=== PATIENT | male | born 1990 | race Caucasian/White ===

== ENCOUNTER 2018-07-15 14:12 | Emergency (ER) | payer OTHER ==
[~2018-07-15] VITALS: Ht 157.5 cm; Wt 61.4 kg
[~2018-07-15 14:12] MED LIST: DOCU-144 PO; LOPE2CAP PO
[2018-07-15 14:20] VITALS: Ht 157.5 cm; Wt 61.4 kg
[2018-07-15] MEDS ORDERED: KETOROLAC 30 MG INJ IM STA (15:00)
[2018-07-15] MEDS ORDERED: ONDANSETRON 4 MG INJ IV STA (16:06)
[2018-07-15] MEDS ORDERED: morphine 4 MG/ML VIAL IV STA (16:06)
[2018-07-15] MEDS ORDERED: SOD CHLORIDE 0.9% 1,000 ML IV STA (16:06)
--- NOTE | 2018-07-15 18:40 | ERD ---
ER Documentation Chief Complaint Chief Complaint R88, ap w/nausea since last night, just D/C fr [facility] This is a 27-year-old male patient who presents to the emergency room via rescue ambulance with complaint of diffuse abdominal abdominal pain x 2 days. She has states he was seen at [place] ED today and was given MiraLAX and sent out. Patient continues to have abdominal pain, denies vomiting, +nausea, last BM 4 days ago. Denies fevers, denies drug use, denies alcohol use, denies tobacco use. She denies medical history although ED records from this hospital show patient has been seen here in the past for abdominal obstruction. States he is homeless and living in a tent. ROS All systems reviewed and are negative except as per history of present illness. Medications Home Meds Discontinued Reported Medications Loperamide Hcl* (Imodium*) 2 Mg Capsule, 2 MG PO .WITH EACH DIARRHEA PRN for DIARRHEA, CAP MAX 16 mg/day 01/28/16 Docusate Sodium* (Colace*) 100 Mg Capsule, 100 MG PO BID, #60 CAP 01/28/16 Discontinued Scripts Sennosides* (Senna Lax*) 8.6 Mg Tablet, 1 TAB PO DAILY, #30 TAB Prov:CARLA BUSCH MD 07/15/18 Docusate Sodium* (Colace*) 100 Mg Capsule, 100 MG PO TID, #30 CAP Prov:CARLA BUSCH MD 07/15/18 Allergies Allergies: Coded Allergies: Penicillins (Verified Allergy, Severe, Rash, 07/16/18) PMhx/Soc History of Surgery: Yes (Head surgery at 1 year old in 1998.) Anesthesia Reaction: No Hx Neurological Disorder: No Hx Respiratory Disorders: No Hx Cardiac Disorders: No Hx Psychiatric Problems: No Hx Miscellaneous Medical Probl: No Hx Alcohol Use: No Hx Substance Use: No Hx Tobacco Use: No Physical Exam Vitals Vital Signs Date Temp Pulse Resp B/P (MAP) Pulse Ox O2 O2 Flow FiO2 Time Delivery Rate 07/15/18 98.2 80 16 118/80 98 Room Air 20:36 (93) 07/15/18 97.8 83 18 116/80 99 14:20 (92) Physical Exam Const: No acute distress Head: Atraumatic Eyes: Normal Conjunctiva, PERRL ENT: Normal External Ears, Nose and Mouth. Neck: Full range of motion. No meningismus. Resp: Clear to auscultation bilaterally Cardio: Regular rate and rhythm, no murmurs Abd: firm, distended, diffuse tenderness, hypoactive bowel sounds, no bruising, no masses. Skin: No petechiae or rashes Back: No midline or flank tenderness Ext: No cyanosis, or edema Neur: Awake and alert Psych: Anxious Mood and Affect Result Diagram: 07/15/18 1625 07/15/18 1623 Results 24 hrs Laboratory Tests Test 07/15/18 16:23 07/15/18 16:25 07/15/18 18:30 Sodium Level 142 mmol/L Potassium Level 3.5 mmol/L Chloride Level 105 mmol/L Carbon Dioxide Level 23 mmol/L Anion Gap 14 Blood Urea Nitrogen 11 mg/dl Creatinine 0.68 mg/dl Est Glomerular Filtrat > 60 mL/min Rate mL/min Glucose Level 103 mg/dl Calcium Level 9.3 mg/dl Total Bilirubin 0.6 mg/dl Direct Bilirubin 0.00 mg/dl Indirect Bilirubin 0.6 mg/dl Aspartate Amino 25 IU/L Transf (AST/SGOT) Alanine 12 IU/L Aminotransferase (ALT/SGPT) Alkaline Phosphatase 136 IU/L Total Protein 8.6 g/dl Albumin 4.7 g/dl Globulin 3.90 g/dl Albumin/Globulin Ratio 1.20 Lipase 41 U/L White Blood Count 13.4 10^3/ul Red Blood Count 5.19 10^6/ul Hemoglobin 15.4 g/dl Hematocrit 45.6 % Mean Corpuscular Volume 87.9 fl Mean Corpuscular Hemoglobin 29.7 pg Mean Corpuscular 33.8 g/dl Hemoglobin Concent Red Cell Distribution Width 12.1 % Platelet Count 230 10^3/UL Mean Platelet Volume 10.9 fl Immature Granulocytes % 0.500 % Neutrophils % 89.2 % Lymphocytes % 5.4 % Monocytes % 4.6 % Eosinophils % 0.0 % Basophils % 0.3 % Nucleated Red Blood Cells % 0.0 /100WBC Immature Granulocytes # 0.070 10^3/ul Neutrophils # 11.9 10^3/ul Lymphocytes # 0.7 10^3/ul Monocytes # 0.6 10^3/ul Eosinophils # 0.0 10^3/ul Basophils # 0.0 10^3/ul Nucleated Red Blood Cells # 0.0 10^3/ul Urine Color YUNIOR Urine Clarity CLEAR Urine pH 5.0 Urine Specific Pearce 1.024 Urine Ketones 1+ mg/dL Urine Nitrite NEGATIVE mg/dL Urine Bilirubin 2+ mg/dL Urine Urobilinogen 2+ mg/dL Urine Leukocyte Esterase TRACE Armin/ul Urine Microscopic RBC 1 /HPF Urine Microscopic WBC 3 /HPF Urine Mucus FEW /HPF Urine Hemoglobin NEGATIVE mg/dL Urine Glucose NEGATIVE mg/dL Urine Total Protein NEGATIVE mg/dl Current Medications Medications Dose Sig/Joycelyn Start Time Status Last (Trade) Ordered Route PRN Stop Time Admin Dose Reason Admin Ketorolac 30 mg ONCE STAT 07/15/18 DC 07/15/18 Tromethamine IM 15:00 07/15/18 15:08 (Toradol) 15:03 Sodium 1,000 ml @ Q1H STAT 07/15/18 DC 07/15/18 Chloride 1,000 mls/hr IV 16:06 07/15/18 16:22 17:05 Morphine 4 mg ONCE STAT 07/15/18 DC 07/15/18 Sulfate IV 16:06 07/15/18 16:19 (morphine) 16:10 Ondansetron 4 mg ONCE STAT 07/15/18 DC 07/15/18 HCl (Zofran IV 16:06 07/15/18 16:19 Inj) 16:10 Lactulose 20 gm ONCE ONCE 07/15/18 DC 07/15/18 (Enulose) PO 19:00 07/15/18 19:18 19:01 Bisacodyl 10 mg ONCE ONCE 07/15/18 DC ([place] 19:00 07/15/18 Supp) 19:00 Magnesium 300 ml ONCE ONCE 07/15/18 DC 07/15/18 Citrate PO 19:00 07/15/18 18:44 (Citroma) 19:01 Procedures/MDM KUB reveals fecal impaction. Patient continues to have severe pain. Patient signed over to Dr. Busch and moved to the main ER. BHUPENDRA AGUILAR NP Jul 15, 2018 18:40
[2018-07-15] MEDS ORDERED: DOCU-144 PO (18:46)
[2018-07-15] MEDS ORDERED: SENN-120 PO (18:46)
--- NOTE | 2018-07-15 18:53 | QN ---
Documentation Comment My independent concise history is abdominal pain and constipation, no bowel movement for 2 days. My pertinent physical exam findings are distended abdomen and diffuse tenderness to palpation without rebound or guarding. The plan is lactulose by mouth and magnesium citrate by mouth. The patient refused Dulcolax suppository or enema. He will be discharged after bowel movement. I do not believe requires admission to the hospital at this time. He will be given a prescription for Colace and senna. Medical decision making: The patient has acute constipation which is likely cause of his abdominal pain. I doubt appendicitis, cholecystitis, pancreatitis, or bowel obstruction. CARLA BUSCH MD Jul 15, 2018 18:53
[2018-07-15] MEDS ORDERED: MAGNESIUM CITRATE 300 ML BTL PO ONE (19:00)
[2018-07-15] MEDS ORDERED: BISACODYL 10 MG SUPP PR ONE (19:00)
[2018-07-15] MEDS: LACTULOSE 30ML CUP PO ONE ×2 (19:04→19:18)
[2018-07-15 20:36] VITALS: BP 118/80; PULSE 80; RESP 16
== END 2018-07-15 20:38 | disposition home or self-care (01) ==
LOC: FTE 14:12
DX: R10.84 Generalized abdominal pain (principal); R11.0 Nausea
CPT/HCPCS: 36415; 74019; 74176; 80053; 81001; 83690; 85025; 96361; 96372; 96374; 96375; J1885; J2270; J2405; J7030; Z7502; Z7610

== ENCOUNTER 2018-07-16 10:33 | Inpatient (IN) | payer OTHER ==
[~2018-07-16] VITALS: Ht 157.5 cm; Wt 53.4 kg
[~2018-07-16 10:33] MED LIST changes: +SENN-120 PO
[2018-07-16] MEDS ORDERED: SOD CHLORIDE 0.9% 1,000 ML IV STA (11:09)
[2018-07-16] MEDS ORDERED: SOD CHLORIDE 0.9% 1,000 ML IV SCH (13:06)
[2018-07-16] MEDS: DEXTROSE 5%-0.45% NACL 1,000 ML IV SCH ×2 (13:14→21:28)
--- NOTE | 2018-07-16 13:18 | HP ---
Date/Time of Note Date/Time of Note DATE: 07/16/18 TIME: 13:18 Assessment/Plan VTE Prophylaxis SCD applied (from Nsg): Yes Pharmacological prophylaxis: NA/contraindicated Pharm contraindication: bleeding Lines/Catheters IV Catheter Type (from Nrsg): Saline Lock Assessment/Plan Assessment/Plan 1. Acute lower GI bleeding - Gi consulted and will plan for colonoscopy on Wednesday. Will do 2 day prep given findings of fecal impaction on CT 07/15. Continue clear liquid diet for now - H/H remains stable and no need for transfusions at this time - Continue IVF and monitor for further episodes - FOBT positives 2. Constipation - will undergo bowel prep over the next 2 days 3. Homelessness - SW consulted 4. Leukocytosis - most likely reactive 5. Diet - Clear 6. GI ppx - PPI 7. Disposition - Admit to med.surg for evaluation of lower GI bleed. Plans for 2 day bowel prep and colonoscopy on Wednesday. Result Diagram: 07/16/18 1128 07/16/18 1127 Results 24hrs Laboratory Tests Test 07/16/18 11:27 07/16/18 11:28 07/16/18 11:46 Sodium Level 135 Potassium Level 3.8 Chloride Level 104 Carbon Dioxide Level 21 Anion Gap 10 Blood Urea Nitrogen 14 Creatinine 0.64 Est Glomerular Filtrat Rate mL/min > 60 Glucose Level 171 Calcium Level 8.2 L Total Bilirubin 0.7 Direct Bilirubin 0.00 Indirect Bilirubin 0.7 Aspartate Amino Transf (AST/SGOT) 19 Alanine Aminotransferase (ALT/SGPT) 20 Alkaline Phosphatase 97 Troponin I < 0.012 Total Protein 6.8 # Albumin 3.7 # Globulin 3.10 Albumin/Globulin Ratio 1.19 White Blood Count 13.3 H Red Blood Count 4.70 Hemoglobin 13.8 L Hematocrit 40.9 L Mean Corpuscular Volume 87.0 Mean Corpuscular Hemoglobin 29.4 Mean Corpuscular Hemoglobin Concent 33.7 Red Cell Distribution Width 12.3 Platelet Count 213 Mean Platelet Volume 10.8 H Immature Granulocytes % 0.400 Neutrophils % 84.0 H Lymphocytes % 6.8 L Monocytes % 8.6 Eosinophils % 0.0 Basophils % 0.2 Nucleated Red Blood Cells % 0.0 Immature Granulocytes # 0.050 H Neutrophils # 11.2 H Lymphocytes # 0.9 Monocytes # 1.1 H Eosinophils # 0.0 Basophils # 0.0 Nucleated Red Blood Cells # 0.0 Prothrombin Time 13.8 Prothrombin Time Ratio 1.1 INR International Normalized Ratio 1.05 Activated Partial Thromboplast Time 27.4 Stool Occult Blood POSITIVE HPI/ROS Admit Date/Time Admit Date/Time 07/16/18 Hx of Present Illness 27 yo M with PMH constipation and homelessness presented to ED after experiencing bright red blood per rectum. Patient states he was seen the in ED yesterday for constipation and given stool softeners then discharged home. Patient states he took the stool softeners and noticed bright red blood in the toilet. He denies any chest pain, dizziness, shortness of breath, nausea, vomiting, or abdominal pain. Patient was hospitalized in 2016 for fecal impaction and seen by GI at that time as well. ROS All 12 systems reviewed and pertinent positives as per HPI. All others negative. Constitutional: fatigue; No nausea Eyes: No discharge ENT: No congestion Respiratory: No pleuritic pain Cardiovascular: No chest pain, No lightheadedness, No palpitations Gastrointestinal: blood, constipation; No pain, No diarrhea, No nausea, No vomiting Genitourinary: no complaints Musculoskeletal: No back pain Skin: No bruising, No laceration, No rash Neurologic: No confusion, No dizziness, No focal-weakness, No syncope Endocrine: no complaints Lymphatic: no complaints Psychological: nl mood/affect Immunologic: no complaints PMH/Family/Social Past Medical History Medical History: other (constipation) Medications Current Medications Sodium Chloride 1,000 ml @ 80 mls/hr [id number] IV ; Start 07/16/18 at 13:06; Stop 07/17/18 at 01:35 Ondansetron HCl (Zofran Inj) 4 mg BRIDGE ORDER PRN IV NAUSEA/VOMITING; Start 07/16/18 at 13:30; Stop 07/17/18 at 13:29 Acetaminophen (Tylenol Tab) 650 mg ER BRIDGE PRN PO .MILD PAIN 1-3 OR TEMP; Start 07/16/18 at 13:30; Stop 07/17/18 at 13:29 Dextrose/Sodium Chloride 1,000 ml @ 75 mls/hr [id number] IV ; Start 07/16/18 at 13:14; Status UNV IV Flush (NS 3 ml) 3 ml PER PROTOCOL IV ; Start 07/16/18 at 13:30; Status UNV Ondansetron HCl (Zofran Inj) 4 mg Q6H PRN IV NAUSEA/VOMITING; Start 07/16/18 at 13:30; Status UNV Acetaminophen (Tylenol Tab) 650 mg Q6H PRN PO .PAIN 1-3 OR TEMP; Start 07/16/18 at 13:30; Status UNV Docusate Sodium (Colace) 100 mg Q12H PRN PO .CONSTIPATION; Start 07/16/18 at 13:30; Status UNV Magnesium Hydroxide (Milk Of Mag) 30 ml DAILY PRN PO .CONSTIPATION; Start 07/16/18 at 13:30; Status UNV Pantoprazole (Protonix Iv) 40 mg BID IV ; Start 07/16/18 at 21:00; Status UNV Polyethylene Glycol (Miralax) 17 gm DAILY PO ; Start 07/17/18 at 09:00; Status UNV Coded Allergies: Penicillins (Verified Allergy, Severe, Rash, 07/16/18) Past Surgical History Past Surgical Hx: no surgical history Family History Significant Family History: no pertinent family hx Social History Alcohol Use: none Smoking Status: Never smoker Drug Use: none Exam/Review of Systems Vital Signs Vitals Vital Signs Date Temp Pulse Resp B/P (MAP) Pulse Ox O2 O2 Flow FiO2 Time Delivery Rate 07/16/18 Nasal 2 11:30 Cannula 07/16/18 99.1 99 18 99/60 (73) 97 10:36 Exam Exam General: Patient is laying in bed, no acute distress. answering questions appropriately. fatigued Head: Normocephalic atraumatic Eyes: EOMI, pupils reactive to light. Neck: Supple, nontender Chest: nontender Respiratory: Clear to auscultation bilaterally. no wheezing or rhonchi Cardiovascular: S1, S2, regular rate and rhythm, no obvious murmurs Gastrointestinal: soft, non-tender to palpation, nondistended, bowel sounds heard. Neurological: Moves all extremities spontaneously. no focal deficits appreciated Skin: no rashes Additional Comments No home medications PROCEDURE: CT Abdomen and Pelvis without contrast. CLINICAL INDICATION: Abdominal pain. TECHNIQUE: CT scan of the abdomen and pelvis was performed on a multi-detector high-resolution CT scanner. The patient was scanned without contrast administration. Coronal and sagittal reformatted images were obtained from the axial source images. Images were reviewed on a high-resolution PACS workstation. The total exam CTDI equals 4.8 mGy and the total exam DLP equals 277 mGy-cm. DICOM images are available. 3-D reconstructions were not performed. One or more of the following dose reduction techniques were utilized: 1.) Automated exposure control 2.) Adjustment of the mA +/- kV according to patient's size 3.) Use of iterative reconstruction technique. COMPARISON: None. FINDINGS: CT abdomen: Heart (where visible): Unremarkable. Lung bases: No evidence of pneumonia, mass, pleural effusion. Liver: Normal attenuation. No visible focal mass. Biliary ductal system: No evidence of significant dilatation. Gallbladder: No wall thickening, visible intraluminal stone, or pericholecystic inflammatory change. Pancreas: Unremarkable. Stomach: No identifiable focal mass or gross wall thickening. Spleen: No gross splenomegaly. Abdominal colon: There is massive distension of the rectosigmoid by an extremely large volume of fecal material. The sigmoid extends upward to the left hemidiaphragm. The wall of the rectum shows mild diffuse thickening.. Abdominal small bowel: Normal in caliber, course, and mucosal pattern. Adrenal glands: No visible masses. Right Kidney: Normal in size and contour without focal mass or collecting system dilatation. No visible calcifications. Left kidney: Normal in size and contour without focal mass or collecting system dilatation. No visible calcifications. Abdominal aorta: Normal caliber. Lymph nodes: No significantly enlarged nodes. CT pelvis: Pelvic colon: Massive distension of the rectum and sigmoid colon as noted above. Pelvic small bowel: Massively displaced by the fecal mass. Appendix: Identified. No evidence of inflammation. Urinary bladder: Massively displaced cephalad and to the right by the fecal mass. Reproductive structures: Unremarkable. Bony structures included in the scan: No clinically significant abnormalities. IMPRESSION: 1. Massive distension of the rectum and sigmoid colon with an extremely large fecal mass extending to the left hemidiaphragm with prominent compression and displacement of the remaining bowel and the urinary bladder. 2. Otherwise unremarkable computed tomograms of the abdomen and pelvis. RPTAT:AAJJ Physician Jah Date Time Electronically viewed and signed by Physician Jah on 07/15/2018 18:29 . PROCEDURE: XR Abdomen 2 Views CLINICAL INDICATION: abd pain . TECHNIQUE: Two upright frontal abdominal radiographic views. Patient unable to lie down for supine view COMPARISON: None FINDINGS: Stool like material overlying the pelvis and the left abdomen. No evidence of bowel obstruction. There is no radiographic evidence of free intraperitoneal air. There are no abnormal soft tissue calcifications. No suspicious osseous lesions. Visualized lung bases are clear. IMPRESSION: Large amount of stool overlying the left abdomen and pelvis. Correlate for constipation and possible fecal impaction. RPTAT: HH Physician Johanna Date Time Electronically viewed and signed by Ez Can Physician on 07/15/2018 16:04 JOHN LEBLANC MD Jul 16, 2018 13:18
--- NOTE | 2018-07-16 13:29 | ERD ---
ER Documentation Chief Complaint Chief Complaint ACTIVE RECTAL BLEED HPI This is a 27-year-old male who presents to the emergency room for evaluation of rectal bleeding. The patient was seen in the emergency room last night and was diagnosed with constipation and discharged home with stool softeners. He states that he did have a bowel movement however he noticed a lot of blood and came to the ER for evaluation. He does state that he is feeling weak as well but denies any nausea or vomiting. He denies any chest pain or shortness of breath but states that "I do not have energy right now" ROS All systems reviewed and are negative except as per history of present illness. Medications Home Meds Discontinued Reported Medications Loperamide Hcl* (Imodium*) 2 Mg Capsule, 2 MG PO .WITH EACH DIARRHEA PRN for DIARRHEA, CAP MAX 16 mg/day 01/28/16 Docusate Sodium* (Colace*) 100 Mg Capsule, 100 MG PO BID, #60 CAP 01/28/16 Discontinued Scripts Sennosides* (Senna Lax*) 8.6 Mg Tablet, 1 TAB PO DAILY, #30 TAB Prov:CARLA BUSCH MD 07/15/18 Docusate Sodium* (Colace*) 100 Mg Capsule, 100 MG PO TID, #30 CAP Prov:CARLA BUSCH MD 07/15/18 Allergies Allergies: Coded Allergies: Penicillins (Verified Allergy, Severe, Rash, 07/16/18) PMhx/Soc History of Surgery: Yes (Head surgery at 1 year old) Anesthesia Reaction: No Hx Neurological Disorder: No Hx Respiratory Disorders: No Hx Cardiac Disorders: No Hx Psychiatric Problems: No Hx Miscellaneous Medical Probl: No Hx Alcohol Use: No Hx Substance Use: No Hx Tobacco Use: No Smoking Status: Never smoker Physical Exam Vitals Vital Signs Date Temp Pulse Resp B/P (MAP) Pulse Ox O2 O2 Flow FiO2 Time Delivery Rate 07/16/18 Nasal 2 11:30 Cannula 07/16/18 99.1 99 18 99/60 (73) 97 10:36 Physical Exam INITIAL VITAL SIGNS: Reviewed by me GENERAL: The patient is well developed, large amount of dry blood by the patient's feet and on lower extremities HEENT: Dry mucous membranes, pupils equal, round, and reactive to light. EOMI. There is no scleral icterus. NECK: C-spine is soft and supple, there is no meningismus. There is no cervical lymphadenopathy. LUNGS: Clear to auscultation bilaterally. There are no rales, wheezes or rhonchi. HEART: Tachycardic no murmurs, clicks, rubs or gallops. ABDOMEN: Soft, non-tender, non-distended. There are bowel sounds in all four quadrants. No rebound or guarding. EXTREMITIES: There is no peripheral cyanosis or edema. No focal swelling or erythema. NEUROLOGICAL: The patient moves all four extremities with 5/5 strength. Cranial nerves II - XII are intact. Normal gait. Alert and oriented SKIN: There is no apparent rash or petechiae. Rectal exam: Large volume dark brown stool with red streaking, heme positive HEME/LYMPHATIC: There is no evidence of excessive bruising or lymphedema. PSYCHIATRIC: The patient does not appear anxious or depressed. Result Diagram: 07/16/18 1128 07/16/18 1127 Results 24 hrs Laboratory Tests Test 07/16/18 11:27 07/16/18 11:28 07/16/18 11:46 Sodium Level 135 mmol/L Potassium Level 3.8 mmol/L Chloride Level 104 mmol/L Carbon Dioxide Level 21 mmol/L Anion Gap 10 Blood Urea Nitrogen 14 mg/dl Creatinine 0.64 mg/dl Est Glomerular Filtrat Rate mL/min > 60 mL/min Glucose Level 171 mg/dl Calcium Level 8.2 mg/dl Total Bilirubin 0.7 mg/dl Direct Bilirubin 0.00 mg/dl Indirect Bilirubin 0.7 mg/dl Aspartate Amino Transf (AST/SGOT) 19 IU/L Alanine 20 IU/L Aminotransferase (ALT/SGPT) Alkaline Phosphatase 97 IU/L Troponin I < 0.012 ng/ml Total Protein 6.8 g/dl Albumin 3.7 g/dl Globulin 3.10 g/dl Albumin/Globulin Ratio 1.19 White Blood Count 13.3 10^3/ul Red Blood Count 4.70 10^6/ul Hemoglobin 13.8 g/dl Hematocrit 40.9 % Mean Corpuscular Volume 87.0 fl Mean Corpuscular Hemoglobin 29.4 pg Mean Corpuscular 33.7 g/dl Hemoglobin Concent Red Cell Distribution Width 12.3 % Platelet Count 213 10^3/UL Mean Platelet Volume 10.8 fl Immature Granulocytes % 0.400 % Neutrophils % 84.0 % Lymphocytes % 6.8 % Monocytes % 8.6 % Eosinophils % 0.0 % Basophils % 0.2 % Nucleated Red Blood Cells % 0.0 /100WBC Immature Granulocytes # 0.050 10^3/ul Neutrophils # 11.2 10^3/ul Lymphocytes # 0.9 10^3/ul Monocytes # 1.1 10^3/ul Eosinophils # 0.0 10^3/ul Basophils # 0.0 10^3/ul Nucleated Red Blood Cells # 0.0 10^3/ul Prothrombin Time 13.8 Sec Prothrombin Time Ratio 1.1 INR International Normalized Ratio 1.05 Activated Partial Thromboplast 27.4 Sec Time Stool Occult Blood POSITIVE Current Medications Medications Dose Sig/Joycelyn Start Time Status Last (Trade) Ordered Route PRN Stop Time Admin Dose Reason Admin Sodium 1,000 ml @ Q1H STAT 07/16/18 DC 07/16/18 Chloride 1,000 mls/hr IV 11:09 07/16/18 11:30 12:08 Sodium 1,000 ml @ [id number] IV 07/16/18 Chloride 80 mls/hr 13:06 07/17/18 01:35 Ondansetron 4 mg BRIDGE ORDER 07/16/18 HCl (Zofran PRN IV 13:30 07/17/18 Inj) NAUSEA/VOMITI 13:29 NG 650 mg ER BRIDGE 07/16/18 Acetaminophen PRN PO 13:30 07/17/18 (Tylenol .MILD PAIN 13:29 Tab) 1-3 OR TEMP 1,000 ml @ [id number] IV 07/16/18 Dextrose/Sodi 75 mls/hr 13:14 um Chloride IV Flush 3 ml PER 07/16/18 (NS 3 ml) PROTOCOL IV 13:30 Ondansetron 4 mg Q6H PRN 07/16/18 HCl (Zofran IV 13:30 Inj) NAUSEA/VOMITI NG 650 mg Q6H PRN 07/16/18 Acetaminophen PO .PAIN 1-3 13:30 (Tylenol OR TEMP Tab) Docusate 100 mg Q12H PRN 07/16/18 Sodium PO 13:30 (Colace) .CONSTIPATION Magnesium 30 ml DAILY PRN 07/16/18 Hydroxide PO 13:30 (Milk Of Mag) .CONSTIPATION 40 mg BID IV 07/16/18 Pantoprazole 21:00 (Protonix Iv) 17 gm DAILY PO 07/17/18 Polyethylene 09:00 Glycol (Miralax) Procedures/MDM This 27-year-old male presents the ER for evaluation of rectal bleeding. On my examination the patient had a large amount of stool with bright red blood dripping down his lower extremities. He was slightly tachycardic and states he was weak. His initial hemoglobin is above 13 however the patient is displaying a large amount of recently voided stool with gross blood. Stool is heme positive. The patient was given IV fluids and will need to be placed in for admission at this time for IV fluid resuscitation, possible GI consult, and repeat hemoglobin. I have contacted our panel physician Dr. Read who accepts the patient at this time. Departure Diagnosis: Primary Impression: Rectal hemorrhage Additional Impression: Generalized weakness Condition: DEL Lanza DO Jul 16, 2018 13:29
[2018-07-16] MEDS ORDERED: NACL 0.9% 3 ML SYG IV SCH (13:30)
[2018-07-16] MEDS ORDERED: ONDANSETRON 4 MG INJ IV PRN ×2 (13:30)
[2018-07-16] MEDS ORDERED: DOCUSATE SODIUM 100 MG CAP PO PRN (13:30)
[2018-07-16] MEDS ORDERED: ACETAMINOPHEN 325 MG TAB PO PRN ×2 (13:30)
[2018-07-16] MEDS ORDERED: MAGNESIUM HYDROXIDE 30ML CUP PO PRN (13:30)
[2018-07-16] MEDS ORDERED: PANTOPRAZOLE 40 MG INJ IV ONE (13:30)
--- NOTE | 2018-07-16 13:57 | CONS ---
Assessment/Plan Assessment/Plan Assessment/Plan (Daily) Assessment: Rectal bleeding Chronic constipation Homelessness Leukocytosis Productive cough Plan: Colonoscopy on Wednesday 2-day bowel prep Clear liquid diet INR is 1.1 Monitor H&H Transfuse for hemoglobin less than 7.5 Patient seen in collaboration with Dr. Parra Consultation Date/Type/Reason Admit Date/Time Date of Consultation: Jul 16, 2018 Type of Consult GI Reason for Consultation Rectal bleeding/constipation Date/Time of Note DATE: 07/16/18 TIME: 13:51 Hx of Present Illness This is a 27-year-old homeless male with a history of chronic constipation who was admitted for rectal bleeding. Patient reports his symptoms started this morning with seeing bright red blood per rectum in the stool. Patient denies rectal or abdominal pain. He denies taking medications for constipation. Patient was given some laxatives in the emergency room which produced large bowel movement with blood in the stool. Patient denies any history of EGD or colonoscopy in the past. Patient was previously admitted for constipation in 2016. Patient denies smoking, drinking or using illicit drugs. Currently patient denies nausea, vomiting, hematemesis, melena or abdominal pain. The plan is to prep the patient for colonoscopy over the next 2 days. Risks and benefits of the procedure have been discussed with the patient. Patient is agreeable to the procedure. Gastrointestinal: no complaints (See HPI) Past Medical History Chronic constipation Medical History: no pertinent history Home Meds Discontinued Reported Medications Loperamide Hcl* (Imodium*) 2 Mg Capsule, 2 MG PO .WITH EACH DIARRHEA PRN for DIARRHEA, CAP MAX 16 mg/day 01/28/16 Docusate Sodium* (Colace*) 100 Mg Capsule, 100 MG PO BID, #60 CAP 01/28/16 Discontinued Scripts Sennosides* (Senna Lax*) 8.6 Mg Tablet, 1 TAB PO DAILY, #30 TAB Prov:CARLA BUSCH MD 07/15/18 Docusate Sodium* (Colace*) 100 Mg Capsule, 100 MG PO TID, #30 CAP Prov:CARLA BUSCH MD 07/15/18 Medications Current Medications Sodium Chloride 1,000 ml @ 80 mls/hr [id number] IV ; Start 07/16/18 at 13:06; Stop 07/17/18 at 01:35 Ondansetron HCl (Zofran Inj) 4 mg BRIDGE ORDER PRN IV NAUSEA/VOMITING; Start 07/16/18 at 13:30; Stop 07/17/18 at 13:29 Acetaminophen (Tylenol Tab) 650 mg ER BRIDGE PRN PO .MILD PAIN 1-3 OR TEMP; Start 07/16/18 at 13:30; Stop 07/17/18 at 13:29 Dextrose/Sodium Chloride 1,000 ml @ 75 mls/hr [id number] IV ; Start 07/16/18 at 13:14 IV Flush (NS 3 ml) 3 ml PER PROTOCOL IV ; Start 07/16/18 at 13:30 Ondansetron HCl (Zofran Inj) 4 mg Q6H PRN IV NAUSEA/VOMITING; Start 07/16/18 at 13:30 Acetaminophen (Tylenol Tab) 650 mg Q6H PRN PO .PAIN 1-3 OR TEMP; Start 07/16/18 at 13:30 Docusate Sodium (Colace) 100 mg Q12H PRN PO .CONSTIPATION; Start 07/16/18 at 13:30 Magnesium Hydroxide (Milk Of Mag) 30 ml DAILY PRN PO .CONSTIPATION; Start 07/16/18 at 13:30 Pantoprazole (Protonix Iv) 40 mg BID IV ; Start 07/16/18 at 21:00 Polyethylene Glycol (Miralax) 17 gm DAILY PO ; Start 07/17/18 at 09:00 Allergies: Coded Allergies: Penicillins (Verified Allergy, Severe, Rash, 07/16/18) Past Surgical History Past Surgical Hx: no surgical history Social History Alcohol Use: none Smoking Status: Never smoker Drug Use: none Exam/Review of Systems Exam Vitals Vital Signs Date Temp Pulse Resp B/P (MAP) Pulse Ox O2 O2 Flow FiO2 Time Delivery Rate 07/16/18 Nasal 2 11:30 Cannula 07/16/18 99.1 99 18 99/60 (73) 97 10:36 Exam PHYSICAL EXAMINATION: GENERAL: Well developed, well nourished, alert & oriented x 3, in no acute distress SKIN: No lesions, no stigmata chronic liver disease, no evidence of bleeding diathesis LYMPHATIC: No palpable lymphadenopathy. HEAD: Normocephalic, atraumatic, no tenderness. EYES: Pupils equal reactive to light and accommodation, full extraocular movements, sclera clear, non-icteric, no discharge. EARS/NOSE AND THROAT: Ears normal, nose normal, oropharynx normal, oral membranes well hydrated without lesions. NECK: Supple, no masses, thyroid normal, JVP within normal limits, carotids normal without bruits. CHEST: Inspection within normal limits. CARDIOVASCULAR: Heart: Regular rate and rhythm, no murmurs, gallops or rubs. Peripheral pulses present within normal limits, no cyanosis, clubbing or edemas. No pulsatile abdominal mass RESPIRATORY: Lungs clear to auscultation and percussion, no wheezing, no rubs GASTROINTESTINAL AND LIVER: Abdomen: Soft, non tenderness, non-distended, no hernias, no masses, no organomegaly, no ascites, no guarding, no rebound t enderness, normoactive bowel sounds. Rectal: Deferred. GENITOURINARY: Male genitalia within normal limits. EXTREMITIES: No cyanosis, clubbing or edema. Results Result Diagram: 07/16/18 1128 07/16/18 1127 Results 24hrs Laboratory Tests Test 07/16/18 11:27 07/16/18 11:28 07/16/18 11:46 Sodium Level 135 Potassium Level 3.8 Chloride Level 104 Carbon Dioxide Level 21 Anion Gap 10 Blood Urea Nitrogen 14 Creatinine 0.64 Est Glomerular Filtrat Rate mL/min > 60 Glucose Level 171 Calcium Level 8.2 L Total Bilirubin 0.7 Direct Bilirubin 0.00 Indirect Bilirubin 0.7 Aspartate Amino Transf (AST/SGOT) 19 Alanine Aminotransferase (ALT/SGPT) 20 Alkaline Phosphatase 97 Troponin I < 0.012 Total Protein 6.8 # Albumin 3.7 # Globulin 3.10 Albumin/Globulin Ratio 1.19 White Blood Count 13.3 H Red Blood Count 4.70 Hemoglobin 13.8 L Hematocrit 40.9 L Mean Corpuscular Volume 87.0 Mean Corpuscular Hemoglobin 29.4 Mean Corpuscular Hemoglobin Concent 33.7 Red Cell Distribution Width 12.3 Platelet Count 213 Mean Platelet Volume 10.8 H Immature Granulocytes % 0.400 Neutrophils % 84.0 H Lymphocytes % 6.8 L Monocytes % 8.6 Eosinophils % 0.0 Basophils % 0.2 Nucleated Red Blood Cells % 0.0 Immature Granulocytes # 0.050 H Neutrophils # 11.2 H Lymphocytes # 0.9 Monocytes # 1.1 H Eosinophils # 0.0 Basophils # 0.0 Nucleated Red Blood Cells # 0.0 Prothrombin Time 13.8 Prothrombin Time Ratio 1.1 INR International Normalized Ratio 1.05 Activated Partial Thromboplast Time 27.4 Stool Occult Blood POSITIVE Medications Medication Current Medications Sodium Chloride 1,000 ml @ 80 mls/hr [id number] IV ; Start 07/16/18 at 13:06; Stop 07/17/18 at 01:35 Ondansetron HCl (Zofran Inj) 4 mg BRIDGE ORDER PRN IV NAUSEA/VOMITING; Start 07/16/18 at 13:30; Stop 07/17/18 at 13:29 Acetaminophen (Tylenol Tab) 650 mg ER BRIDGE PRN PO .MILD PAIN 1-3 OR TEMP; Start 07/16/18 at 13:30; Stop 07/17/18 at 13:29 Dextrose/Sodium Chloride 1,000 ml @ 75 mls/hr [id number] IV ; Start 07/16/18 at 13:14 IV Flush (NS 3 ml) 3 ml PER PROTOCOL IV ; Start 07/16/18 at 13:30 Ondansetron HCl (Zofran Inj) 4 mg Q6H PRN IV NAUSEA/VOMITING; Start 07/16/18 at 13:30 Acetaminophen (Tylenol Tab) 650 mg Q6H PRN PO .PAIN 1-3 OR TEMP; Start 07/16/18 at 13:30 Docusate Sodium (Colace) 100 mg Q12H PRN PO .CONSTIPATION; Start 07/16/18 at 13:30 Magnesium Hydroxide (Milk Of Mag) 30 ml DAILY PRN PO .CONSTIPATION; Start 07/16/18 at 13:30 Pantoprazole (Protonix Iv) 40 mg BID IV ; Start 07/16/18 at 21:00 Polyethylene Glycol (Miralax) 17 gm DAILY PO ; Start 07/17/18 at 09:00 BERNARDO RAMON NP Jul 16, 2018 13:57
[2018-07-16] MEDS ORDERED: BISACODYL (EC) 5 MG TAB PO ONE (14:00)
[2018-07-16 16:22] VITALS: BP 98/55; PULSE 99; RESP 18
[2018-07-16] MEDS ORDERED: MAGNESIUM CITRATE 300 ML BTL PO ONE (17:30)
[2018-07-16] MEDS ORDERED: POLYETHYLENE GLYCOL 3350 119 GM POWDER PO ONE (18:30)
[2018-07-16 20:00] VITALS: BP 116/66; PULSE 86; RESP 17
[2018-07-16] MEDS: PANTOPRAZOLE 40 MG INJ IV SCH (21:04)
[2018-07-17 02:00] VITALS: BP 109/54; PULSE 81; RESP 18
[2018-07-17] MEDS ORDERED: POLYETHYLENE GLYCOL 3350 119 GM POWDER PO ONE (06:00)
[2018-07-17] MEDS ORDERED: BISACODYL (EC) 5 MG TAB PO ONE (08:00)
[2018-07-17 08:13] VITALS: BP 91/53; PULSE 79; RESP 17
[2018-07-17] MEDS ORDERED: POLYETHYLENE GLYCOL 17 GM PACKET PO SCH (09:00)
--- NOTE | 2018-07-17 09:09 | PN ---
Date/Time of Note Date/Time of Note DATE: 07/17/18 TIME: 09:09 Assessment/Plan VTE Prophylaxis Risk score (from [facility])>0 risk: 1 SCD applied (from [facility]): Yes Pharmacological prophylaxis: NA/contraindicated Pharm contraindication: bleeding Lines/Catheters IV [facility]ter Type (from [facility]): Peripheral IV Assessment/Plan Assessment/Plan 1. Acute lower GI bleeding- resolved - GI consultation appreciated. Patient refusing colonoscopy and states no longer with blood in BMs - H/H dropped by may be dilutional. 2. Constipation - resolved 3. Homelessness - SW consulted 4. Leukocytosis - resolved 5. Disposition - medically stable for discharge home Result Diagram: 07/17/1851907/17/18519 Results 24hrs Laboratory Tests Test 07/16/18 11:27 07/16/18 11:28 07/16/18 11:46 07/17/18 05:20 Sodium Level 135 140 Potassium Level 3.8 4.1 Chloride Level 104 109 Carbon Dioxide Level 21 25 Anion Gap 10 6 Blood Urea Nitrogen 14 10 Creatinine 0.64 0.73 Est Glomerular Filtrat > 60 > 60 Rate mL/min Glucose Level 171 97 # Calcium Level 8.2 L 7.8 L Total Bilirubin 0.7 Direct Bilirubin 0.00 Indirect Bilirubin 0.7 Aspartate Amino 19 Transf (AST/SGOT) Alanine 20 Aminotransferase (ALT/SG PT) Alkaline Phosphatase 97 Troponin I < 0.012 Total Protein 6.8 # Albumin 3.7 # Globulin 3.10 Albumin/Globulin Ratio 1.19 White Blood Count 13.3 H 6.2 # Red Blood Count 4.70 3.67 #L Hemoglobin 13.8 L 10.9 #L Hematocrit 40.9 L 32.3 #L Mean Corpuscular Volume 87.0 88.0 Mean Corpuscular 29.4 29.7 Hemoglobin Mean Corpuscular 33.7 33.7 Hemoglobin Concent Red Cell Distribution 12.3 12.7 Width Platelet Count 213 188 Mean Platelet Volume 10.8 H 11.5 H Immature Granulocytes % 0.400 0.200 Neutrophils % 84.0 H 56.9 Lymphocytes % 6.8 L 30.3 Monocytes % 8.6 12.2 H Eosinophils % 0.0 0.2 Basophils % 0.2 0.2 Nucleated Red Blood 0.0 0.0 Cells % Immature Granulocytes # 0.050 H 0.010 Neutrophils # 11.2 H 3.5 Lymphocytes # 0.9 1.9 Monocytes # 1.1 H 0.8 Eosinophils # 0.0 0.0 Basophils # 0.0 0.0 Nucleated Red Blood 0.0 0.0 Cells # Prothrombin Time 13.8 Prothrombin Time Ratio 1.1 INR International 1.05 Normalized Ratio Activated 27.4 Partial Thromboplast Time Stool Occult Blood POSITIVE Magnesium Level 2.2 Subjective 24 Hr Interval Summary Free Text/Dictation Patient doing well and states no longer with blood in stool. Refusing colonoscopy at this time. Requesting to go home. Exam/Review of Systems Exam Vitals Vital Signs Date Temp Pulse Resp B/P (MAP) Pulse Ox O2 O2 Flow FiO2 Time Delivery Rate 07/17/18 98.8 79 17 91/53 (66) 96 Room Air 08:13 07/16/18 2 11:30 Intake and Output 07/16/18 07/16/18 07/17/18 1515:00 23:00 07:00 IntakeIntake Total 900 ml 525 ml BalanceBalance 900 ml 525 ml Exam General: Patient is laying in bed, no acute distress. answering questions appropriately. fatigued Neck: Supple, nontender Chest: nontender Respiratory: Clear to auscultation bilaterally. no wheezing or rhonchi Cardiovascular: S1, S2, regular rate and rhythm, no obvious murmurs Gastrointestinal: soft, non-tender to palpation, nondistended, bowel sounds heard. Neurological: Moves all extremities spontaneously. no focal deficits appreciated Skin: no rashes Results Results 24hrs Laboratory Tests Test 07/16/18 11:27 07/16/18 11:28 07/16/18 11:46 07/17/18 05:20 Sodium Level 135 140 Potassium Level 3.8 4.1 Chloride Level 104 109 Carbon Dioxide Level 21 25 Anion Gap 10 6 Blood Urea Nitrogen 14 10 Creatinine 0.64 0.73 Est Glomerular Filtrat > 60 > 60 Rate mL/min Glucose Level 171 97 # Calcium Level 8.2 L 7.8 L Total Bilirubin 0.7 Direct Bilirubin 0.00 Indirect Bilirubin 0.7 Aspartate Amino 19 Transf (AST/SGOT) Alanine 20 Aminotransferase (ALT/SG PT) Alkaline Phosphatase 97 Troponin I < 0.012 Total Protein 6.8 # Albumin 3.7 # Globulin 3.10 Albumin/Globulin Ratio 1.19 White Blood Count 13.3 H 6.2 # Red Blood Count 4.70 3.67 #L Hemoglobin 13.8 L 10.9 #L Hematocrit 40.9 L 32.3 #L Mean Corpuscular Volume 87.0 88.0 Mean Corpuscular 29.4 29.7 Hemoglobin Mean Corpuscular 33.7 33.7 Hemoglobin Concent Red Cell Distribution 12.3 12.7 Width Platelet Count 213 188 Mean Platelet Volume 10.8 H 11.5 H Immature Granulocytes % 0.400 0.200 Neutrophils % 84.0 H 56.9 Lymphocytes % 6.8 L 30.3 Monocytes % 8.6 12.2 H Eosinophils % 0.0 0.2 Basophils % 0.2 0.2 Nucleated Red Blood 0.0 0.0 Cells % Immature Granulocytes # 0.050 H 0.010 Neutrophils # 11.2 H 3.5 Lymphocytes # 0.9 1.9 Monocytes # 1.1 H 0.8 Eosinophils # 0.0 0.0 Basophils # 0.0 0.0 Nucleated Red Blood 0.0 0.0 Cells # Prothrombin Time 13.8 Prothrombin Time Ratio 1.1 INR International 1.05 Normalized Ratio Activated 27.4 Partial Thromboplast Time Stool Occult Blood POSITIVE Magnesium Level 2.2 Medications Medication Current Medications Dextrose/Sodium Chloride 1,000 ml @ 75 mls/hr [id number] IV Last administered on 07/16/18at 21:28; Admin Dose 75 MLS/HR; Start 07/16/18 at 13:14 IV Flush (NS 3 ml) 3 ml PER PROTOCOL IV ; Start 07/16/18 at 13:30 Ondansetron HCl (Zofran Inj) 4 mg Q6H PRN IV NAUSEA/VOMITING; Start 07/16/18 at 13:30 Acetaminophen (Tylenol Tab) 650 mg Q6H PRN PO .PAIN 1-3 OR TEMP; Start 07/16/18 at 13:30 Docusate Sodium (Colace) 100 mg Q12H PRN PO .CONSTIPATION; Start 07/16/18 at 13:30 Magnesium Hydroxide (Milk Of Mag) 30 ml DAILY PRN PO .CONSTIPATION; Start 07/16/18 at 13:30 Pantoprazole (Protonix Iv) 40 mg BID IV Last administered on 07/16/18at 21:04; Admin Dose 40 MG; Start 4/6/19 at 21:00 Polyethylene Glycol (Miralax) 17 gm DAILY PO ; Start 07/17/18 at 09:00 JOHN LEBLANC MD Jul 17, 2018 09:09
[2018-07-17] MEDS: PANTOPRAZOLE 40 MG INJ IV SCH (09:37)
[2018-07-17] MEDS: DEXTROSE 5%-0.45% NACL 1,000 ML IV SCH (09:38)
--- NOTE | 2018-07-17 11:13 | PN ---
Date/Time of Note Date/Time of Note DATE: 07/17/18 TIME: 11:10 Assessment/Plan VTE Prophylaxis Risk score (from [facility])>0 risk: 1 SCD applied (from [facility]): Yes Pharmacological prophylaxis: heparin Lines/Catheters IV Catheter Type (from [facility]): Peripheral IV Assessment/Plan Assessment/Plan Assessment: Rectal bleeding Chronic constipation Homelessness Leukocytosis Productive cough Plan: Patient is refusing colonoscopy Start regular diet with no further recommendations GI will sign off Patient seen in collaboration with Dr. Parra Subjective: Patient is refusing colonoscopy. She states he is rectal bleeding has resolved with the prep. He denies abdominal pain or hematochezia. Patient would like to be discharged. Will start on a regular diet. With no further recommendations GI will sign off and will be available for consultation upon request. PHYSICAL EXAMINATION: GENERAL: Well developed, well nourished, alert & oriented x 3, in no acute distress SKIN: No lesions, no stigmata chronic liver disease, no evidence of bleeding diathesis LYMPHATIC: No palpable lymphadenopathy. HEAD: Normocephalic, atraumatic, no tenderness. EYES: Pupils equal reactive to light and accommodation, full extraocular mo vements, sclera clear, non-icteric, no discharge. EARS/NOSE AND THROAT: Ears normal, nose normal, oropharynx normal, oral membranes well hydrated without lesions. NECK: Supple, no masses, thyroid normal, JVP within normal limits, carotids normal without bruits. CHEST: Inspection within normal limits. CARDIOVASCULAR: Heart: Regular rate and rhythm, no murmurs, gallops or rubs. Peripheral pulses present within normal limits, no cyanosis, clubbing or edemas. No pulsatile abdominal mass RESPIRATORY: Lungs clear to auscultation and percussion, no wheezing, no rubs GASTROINTESTINAL AND LIVER: Abdomen: Soft, non tenderness, non-distended, no hernias, no masses, no organomegaly, no ascites, no guarding, no rebound tenderness, normoactive bowel sounds. Rectal: Deferred. GENITOURINARY: Male genitalia within normal limits. EXTREMITIES: No cyanosis, clubbing or edema. Result Diagram: 07/17/18 0520 07/17/18 0520 Results 24hrs Laboratory Tests Test 07/16/18 11:27 07/16/18 11:28 07/16/18 11:46 07/17/18 05:20 Sodium Level 135 140 Potassium Level 3.8 4.1 Chloride Level 104 109 Carbon Dioxide Level 21 25 Anion Gap 10 6 Blood Urea Nitrogen 14 10 Creatinine 0.64 0.73 Est Glomerular Filtrat > 60 > 60 Rate mL/min Glucose Level 171 97 # Calcium Level 8.2 L 7.8 L Total Bilirubin 0.7 Direct Bilirubin 0.00 Indirect Bilirubin 0.7 Aspartate Amino 19 Transf (AST/SGOT) Alanine 20 Aminotransferase (ALT/SG PT) Alkaline Phosphatase 97 Troponin I < 0.012 Total Protein 6.8 # Albumin 3.7 # Globulin 3.10 Albumin/Globulin Ratio 1.19 White Blood Count 13.3 H 6.2 # Red Blood Count 4.70 3.67 #L Hemoglobin 13.8 L 10.9 #L Hematocrit 40.9 L 32.3 #L Mean Corpuscular Volume 87.0 88.0 Mean Corpuscular 29.4 29.7 Hemoglobin Mean Corpuscular 33.7 33.7 Hemoglobin Concent Red Cell Distribution 12.3 12.7 Width Platelet Count 213 188 Mean Platelet Volume 10.8 H 11.5 H Immature Granulocytes % 0.400 0.200 Neutrophils % 84.0 H 56.9 Lymphocytes % 6.8 L 30.3 Monocytes % 8.6 12.2 H Eosinophils % 0.0 0.2 Basophils % 0.2 0.2 Nucleated Red Blood 0.0 0.0 Cells % Immature Granulocytes # 0.050 H 0.010 Neutrophils # 11.2 H 3.5 Lymphocytes # 0.9 1.9 Monocytes # 1.1 H 0.8 Eosinophils # 0.0 0.0 Basophils # 0.0 0.0 Nucleated Red Blood 0.0 0.0 Cells # Prothrombin Time 13.8 Prothrombin Time Ratio 1.1 INR International 1.05 Normalized Ratio Activated 27.4 Partial Thromboplast Time Stool Occult Blood POSITIVE Magnesium Level 2.2 CC: JESSICA PARRA MD ; Exam/Review of Systems Exam Vitals Vital Signs Date Temp Pulse Resp B/P (MAP) Pulse Ox O2 O2 Flow FiO2 Time Delivery Rate 07/17/18 98.8 79 17 91/53 (66) 96 Room Air 08:13 07/16/18 2 11:30 Intake and Output 07/16/18 07/16/18 07/17/18 1515:00 23:00 07:00 IntakeIntake Total 900 ml 525 ml BalanceBalance 900 ml 525 ml Results Results 24hrs Laboratory Tests Test 07/16/18 11:27 07/16/18 11:28 07/16/18 11:46 07/17/18 05:20 Sodium Level 135 140 Potassium Level 3.8 4.1 Chloride Level 104 109 Carbon Dioxide Level 21 25 Anion Gap 10 6 Blood Urea Nitrogen 14 10 Creatinine 0.64 0.73 Est Glomerular Filtrat > 60 > 60 Rate mL/min Glucose Level 171 97 # Calcium Level 8.2 L 7.8 L Total Bilirubin 0.7 Direct Bilirubin 0.00 Indirect Bilirubin 0.7 Aspartate Amino 19 Transf (AST/SGOT) Alanine 20 Aminotransferase (ALT/SG PT) Alkaline Phosphatase 97 Troponin I < 0.012 Total Protein 6.8 # Albumin 3.7 # Globulin 3.10 Albumin/Globulin Ratio 1.19 White Blood Count 13.3 H 6.2 # Red Blood Count 4.70 3.67 #L Hemoglobin 13.8 L 10.9 #L Hematocrit 40.9 L 32.3 #L Mean Corpuscular Volume 87.0 88.0 Mean Corpuscular 29.4 29.7 Hemoglobin Mean Corpuscular 33.7 33.7 Hemoglobin Concent Red Cell Distribution 12.3 12.7 Width Platelet Count 213 188 Mean Platelet Volume 10.8 H 11.5 H Immature Granulocytes % 0.400 0.200 Neutrophils % 84.0 H 56.9 Lymphocytes % 6.8 L 30.3 Monocytes % 8.6 12.2 H Eosinophils % 0.0 0.2 Basophils % 0.2 0.2 Nucleated Red Blood 0.0 0.0 Cells % Immature Granulocytes # 0.050 H 0.010 Neutrophils # 11.2 H 3.5 Lymphocytes # 0.9 1.9 Monocytes # 1.1 H 0.8 Eosinophils # 0.0 0.0 Basophils # 0.0 0.0 Nucleated Red Blood 0.0 0.0 Cells # Prothrombin Time 13.8 Prothrombin Time Ratio 1.1 INR International 1.05 Normalized Ratio Activated 27.4 Partial Thromboplast Time Stool Occult Blood POSITIVE Magnesium Level 2.2 Medications Medication Current Medications Dextrose/Sodium Chloride 1,000 ml @ 75 mls/hr [id number] IV Last administered on 07/17/18at 09:38; Admin Dose 75 MLS/HR; Start 07/16/18 at 13:14 IV Flush (NS 3 ml) 3 ml PER PROTOCOL IV ; Start 07/16/18 at 13:30 Ondansetron HCl (Zofran Inj) 4 mg Q6H PRN IV NAUSEA/VOMITING; Start 07/16/18 at 13:30 Acetaminophen (Tylenol Tab) 650 mg Q6H PRN PO .PAIN 1-3 OR TEMP; Start 07/16/18 at 13:30 Docusate Sodium (Colace) 100 mg Q12H PRN PO .CONSTIPATION; Start 07/16/18 at 13:30 Magnesium Hydroxide (Milk Of Mag) 30 ml DAILY PRN PO .CONSTIPATION; Start 07/16/18 at 13:30 Pantoprazole (Protonix Iv) 40 mg BID IV Last administered on 07/17/18at 09:37; Admin Dose 40 MG; Start 07/16/18 at 21:00 Polyethylene Glycol (Miralax) 17 gm DAILY PO Last administered on 07/17/18at 09:38; Admin Dose 17 GM; Start 07/17/18 at 09:00 BERNARDO RAMON NP Jul 17, 2018 11:13
--- NOTE | 2018-07-17 12:01 | PDOCDIS ---
Discharge Instructions DIAGNOSIS Discharge Diagnosis 1. Acute lower GI bleeding- resolved 2. Constipation CONDITION [id number] Patient Condition: [id number] Stable HOME CARE INSTRUCTIONS: [id number] Diet Instructions: [id number] Regular ACTIVITY: [id number] Activity Restrictions: [id number] No Restrictions FOLLOW UP/APPOINTMENTS Follow-up Plan 1. Continue taking stool softeners as needed for constipation. Keep well hydrated to prevent hard stool 2. If experiencing any further episodes of bleeding, please go to your closest emergency department JOHN LEBLANC MD Jul 17, 2018 12:01
--- NOTE | 2018-07-17 12:04 | DS ---
Date/Time of Note Date/Time of Note DATE: 07/17/18 TIME: 12:02 Discharge Summary Admission/Discharge Info Admit Date/Time Jul 16, 2018 at 13:07 Discharge Date/Time 07/17/18 Discharge Diagnosis 1. Acute lower GI bleeding- resolved 2. Constipation Patient Condition: Stable Consults GI- Dr. Parra Hx of Present Illness 27 yo M with PMH constipation and homelessness presented to ED after experiencing bright red blood per rectum. Patient states he was seen the in ED yesterday for constipation and given stool softeners then discharged home. Patient states he took the stool softeners and noticed bright red blood in the toilet. He denies any chest pain, dizziness, shortness of breath, nausea, vomiting, or abdominal pain. Patient was hospitalized in 2016 for fecal impaction and seen by GI at that time as well. Hospital Course Patient was admitted for workup of lower GI bleed. He was evaluated by GI and recommendations for colonoscopy were given. Patient initially was agreeable and started on bowel prep. Patient had another BM without any blood and denies any symptoms of fatigue. He later refused colonoscopy and was cleared for discharge from GI standpoint. Patient was counseled about continuing stool softeners as needed and if experiencing further episodes of GI bleeding, return to ED. Patient was discharged in good condition. Home Meds Discontinued Reported Medications Loperamide Hcl* (Imodium*) 2 Mg Capsule, 2 MG PO .WITH EACH DIARRHEA PRN for DIARRHEA, CAP MAX 16 mg/day 01/28/16 Docusate Sodium* (Colace*) 100 Mg Capsule, 100 MG PO BID, #60 CAP 01/28/16 Discontinued Scripts Sennosides* (Senna Lax*) 8.6 Mg Tablet, 1 TAB PO DAILY, #30 TAB Prov:CARLA BUSCH MD 07/15/18 Docusate Sodium* (Colace*) 100 Mg Capsule, 100 MG PO TID, #30 CAP Prov:CARLA BUSCH MD 07/15/18 Follow-up Plan 1. Continue taking stool softeners as needed for constipation. Keep well hydrated to prevent hard stool 2. If experiencing any further episodes of bleeding, please go to your closest emergency department Primary Care Provider [facility], [place], [facility] Time spent on discharge: > 30 minutes Pending Labs Laboratory Tests Test 07/17/18 05:20 White Blood Count 6.2 10^3/ul (4.8-10.8) Red Blood Count 3.67 10^6/ul (4.70-6.10) Hemoglobin 10.9 g/dl (14.0-18.0) Hematocrit 32.3 % (42.0-52.0) Mean Corpuscular Volume 88.0 fl (82.0-101.0) Mean Corpuscular Hemoglobin 29.7 pg (29.0-33.0) Mean Corpuscular Hemoglobin Concent 33.7 g/dl (32.0-37.0) Red Cell Distribution Width 12.7 % (11.5-14.5) Platelet Count 188 10^3/UL (140-415) Mean Platelet Volume 11.5 fl (7.4-10.4) Immature Granulocytes % 0.200 % (0.001-0.429) Neutrophils % 56.9 % (39.0-77.0) Lymphocytes % 30.3 % (15.0-51.0) Monocytes % 12.2 % (0.0-11.0) Eosinophils % 0.2 % (0.0-7.0) Basophils % 0.2 % (0.0-2.0) Nucleated Red Blood Cells % 0.0 /100WBC (0.0-0.0) Immature Granulocytes # 0.010 10^3/ul (0.0-0.031) Neutrophils # 3.5 10^3/ul (1.6-7.5) Lymphocytes # 1.9 10^3/ul (0.8-2.9) Monocytes # 0.8 10^3/ul (0.3-0.9) Eosinophils # 0.0 10^3/ul (0.0-0.5) Basophils # 0.0 10^3/ul (0.0-0.1) Nucleated Red Blood Cells # 0.0 10^3/ul (0.0-0.0) Sodium Level 140 mmol/L (135-144) Potassium Level 4.1 mmol/L (3.5-5.1) Chloride Level 109 mmol/L (97-110) Carbon Dioxide Level 25 mmol/L (21-31) Anion Gap 6 (5-13) Blood Urea Nitrogen 10 mg/dl (7-20) Creatinine 0.73 mg/dl (0.61-1.24) Est Glomerular Filtrat Rate mL/min > 60 mL/min (>60) Glucose Level 97 mg/dl (70-220) Calcium Level 7.8 mg/dl (8.4-10.2) Magnesium Level 2.2 mg/dl (1.7-2.5) JOHN LEBLANC MD Jul 17, 2018 12:04
== END 2018-07-17 13:40 | disposition home or self-care (01) | DRG 379 ==
LOC: E/R 10:33 → PP2 13:07
PROVIDERS: ADMIT Internal Medicine; ATTEND Internal Medicine
DX: K92.2 Gastrointestinal hemorrhage, unspecified (principal); K59.09 Other constipation; Z59.0 Homelessness
CPT/HCPCS: 80048; 80053; 82270; 83735; 84484; 85025; 85610; 85730; 86850; 86900; 86901; 87081; 93005; C9113; J7030; J7042

== ENCOUNTER 2018-08-06 15:18 | Inpatient (IN) | payer OTHER ==
[~2018-08-06] VITALS: Ht 157.5 cm; Wt 57.6 kg
[2018-08-06] MEDS ORDERED: SOD CHLORIDE 0.9% 1,000 ML IV STA ×2 (15:21→17:25)
[2018-08-06] MEDS ORDERED: PANTOPRAZOLE 40 MG INJ IV STA (15:21)
[2018-08-06] MEDS ORDERED: ONDANSETRON 4 MG INJ IV PRN ×2 (17:00→17:30)
[2018-08-06] MEDS ORDERED: ACETAMINOPHEN 325 MG TAB PO PRN ×2 (17:00→17:30)
[2018-08-06] MEDS ORDERED: SOD CHLORIDE 0.9% 0 ML IV ONE (17:25)
[2018-08-06] MEDS ORDERED: NACL 0.9% 3 ML SYG IV SCH (17:30)
[2018-08-06] MEDS ORDERED: DOCUSATE SODIUM 100 MG CAP PO PRN (17:30)
[2018-08-06] MEDS ORDERED: NITROGLYCERIN (SL) 0.4 MG TAB SL PRN (17:30)
[2018-08-06] MEDS ORDERED: MAGNESIUM HYDROXIDE 30ML CUP PO PRN (17:30)
[2018-08-06] MEDS ORDERED: ALBUTEROL/IPRATROPIUM (NEB) 3 ML AMP HHN PRN (17:30)
[2018-08-06] MEDS ORDERED: hydrALAzine 20 MG INJ IV PRN (17:30)
[2018-08-06] MEDS ORDERED: HYDROCODONE/APAP (5/325) TAB PO PRN (17:30)
[2018-08-06] MEDS ORDERED: morphine 2 MG INJ IV PRN (17:30)
[2018-08-06] MEDS ORDERED: LORAZEPAM 2 MG INJ IV PRN (17:30)
--- NOTE | 2018-08-06 18:35 | ERD ---
ER Documentation Chief Complaint Chief Complaint BIB RA FOR EVAL OF RB. PT GIVEN FLUID BOLUS BY EMS HPI Patient is a 27-year-old male with a history of GI bleed who presents with rectal bleeding. The patient was brought in by ambulance. He said that he started with rectal bleeding today after having a bowel movement. Dark red bl ood. He is not currently on blood thinning medications. He was admitted on July 16 for GI bleed but he refused colonoscopy on that admission. Upon review of old medical records this is the patient's fifth visit to the ER since 2015. He goes to a local clinic for his care. ROS All systems reviewed and are negative except as per history of present illness. Medications Home Meds No Active Prescriptions or Reported Meds Allergies Allergies: Coded Allergies: Penicillins (Verified Allergy, Severe, Rash, 08/06/18) PMhx/Soc History of Surgery: Yes (brain surgery childhood)) Anesthesia Reaction: No Hx Neurological Disorder: No Hx Respiratory Disorders: No Hx Cardiac Disorders: No Hx Psychiatric Problems: No Hx Miscellaneous Medical Probl: No Hx Alcohol Use: No Hx Substance Use: No Hx Tobacco Use: No Smoking Status: Never smoker FmHx Family History: diabetes Physical Exam Vitals Vital Signs Date Temp Pulse Resp B/P (MAP) Pulse Ox O2 O2 Flow FiO2 Time Delivery Rate 08/06/18 60 18 90/50 (63) 100 Room Air 18:00 08/06/18 58 18 84/48 (60) 100 Room Air 17:12 08/06/18 Nasal 2 15:35 Cannula 08/06/18 96.2 64 16 101/40 99 15:34 (60) Physical Exam Const: No acute distress Head: Atraumatic Eyes: Normal Conjunctiva ENT: Normal External Ears, Nose and Mouth. Neck: Full range of motion. No meningismus. Resp: Clear to auscultation bilaterally Cardio: Regular rate and rhythm, no murmurs Abd: Soft, non tender, non distended. Normal bowel sounds Skin: No petechiae or rashes Back: No midline or flank tenderness Ext: No cyanosis, or edema Neur: Awake and alert Rectal: Patient has significant amount of dark red blood around his rectum and buttocks Result Diagram: 08/06/18 1529 08/06/18 1529 Results 24 hrs Laboratory Tests Test 08/06/18 15:28 4/27/19 15:29 08/06/18 17:57 Free Thyroxine 0.79 ng/dl White Blood Count 11.4 10^3/ul Red Blood Count 3.50 10^6/ul Hemoglobin 10.4 g/dl Hematocrit 32.4 % Mean Corpuscular Volume 92.6 fl Mean Corpuscular Hemoglobin 29.7 pg Mean Corpuscular 32.1 g/dl Hemoglobin Concent Red Cell Distribution Width 13.3 % Platelet Count 294 10^3/UL Mean Platelet Volume 9.9 fl Immature Granulocytes % 0.600 % Neutrophils % 78.4 % Lymphocytes % 14.1 % Monocytes % 6.2 % Eosinophils % 0.3 % Basophils % 0.4 % Nucleated Red Blood Cells % 0.0 /100WBC Immature Granulocytes # 0.070 10^3/ul Neutrophils # 8.9 10^3/ul Lymphocytes # 1.6 10^3/ul Monocytes # 0.7 10^3/ul Eosinophils # 0.0 10^3/ul Basophils # 0.1 10^3/ul Nucleated Red Blood Cells # 0.0 10^3/ul Prothrombin Time 12.0 Sec Prothrombin Time Ratio 0.9 INR International Normalized Ratio 0.88 Activated Partial Thromboplast 22.1 Sec Time Sodium Level 141 mmol/L Potassium Level 4.3 mmol/L Chloride Level 109 mmol/L Carbon Dioxide Level 24 mmol/L Anion Gap 8 Blood Urea Nitrogen 10 mg/dl Creatinine 0.70 mg/dl Est Glomerular Filtrat Rate mL/min > 60 mL/min Glucose Level 129 mg/dl Calcium Level 8.2 mg/dl Total Bilirubin 0.0 mg/dl Direct Bilirubin 0.00 mg/dl Indirect Bilirubin 0.0 mg/dl Aspartate Amino Transf (AST/SGOT) 18 IU/L Alanine 24 IU/L Aminotransferase (ALT/SGPT) Alkaline Phosphatase 102 IU/L Troponin I < 0.012 ng/ml Total Protein 6.0 g/dl Albumin 3.2 g/dl Globulin 2.80 g/dl Albumin/Globulin Ratio 1.14 Stool Occult Blood POSITIVE Current Medications Medications Dose Sig/Joycelyn Start Time Status Last (Trade) Ordered Route PRN Stop Time Admin Dose Reason Admin Sodium 1,000 ml @ Q1H STAT 08/06/18 DC 08/06/18 Chloride 1,000 mls/hr IV 15:21 15:32 08/06/18 16:20 40 mg ONCE STAT 08/06/18 DC 08/06/18 Pantoprazole IV 15:21 15:32 (Protonix 08/06/18 15:22 Iv) Ondansetron 4 mg BRIDGE ORDER 08/06/18 HCl (Zofran PRN IV 17:00 Inj) NAUSEA/VOMITI 08/07/18 16:59 NG 650 mg ER BRIDGE 08/06/18 Acetaminophen PRN PO 17:00 (Tylenol .MILD PAIN 08/07/18 16:59 Tab) 1-3 OR TEMP IV Flush 3 ml PER 08/06/18 (NS 3 ml) PROTOCOL IV 17:30 Ondansetron 4 mg Q6H PRN 08/06/18 HCl (Zofran IV 17:30 Inj) NAUSEA/VOMITI NG 650 mg Q6H PRN 08/06/18 Acetaminophen PO .PAIN 1-3 17:30 (Tylenol OR TEMP Tab) 1 tab Q6H PRN 08/06/18 Acetaminophen PO .MOD PAIN 17:30 / 4-6 Hydrocodone Bitart ([place] (5/325)) Morphine 2 mg Q4H PRN 08/06/18 Sulfate IV .SEVERE 17:30 (morphine) PAIN 7-10 Docusate 100 mg Q12H PRN 08/06/18 Sodium PO 17:30 (Colace) .CONSTIPATION Magnesium 30 ml DAILY PRN 08/06/18 Hydroxide PO 17:30 (Milk Of Mag) .CONSTIPATION 40 mg BID IV 08/06/18 Pantoprazole 21:00 (Protonix Iv) Lorazepam 0.5 mg Q6H PRN 08/06/18 (Ativan) IV ANXIETY 17:30 Sodium 1,000 ml @ Q10H IV 08/06/18 Chloride 100 mls/hr 17:17 Albuterol/ 3 ml Q4H RESP 08/06/18 Ipratropium THERAPY PRN 17:30 (Duoneb) HHN SHORTNESS OF BREATH Hydralazine 10 mg Q6H PRN 08/06/18 HCl IV ELEVATED 17:30 (Apresoline) BLOOD PRESSURE 1 tab Q5M PRN 08/06/18 Nitroglycerin SL ANGINA 17:30 (Nitroglyceri n (Sl Tab) 0.4 Mg) Sodium 1,000 ml @ Q1H STAT 08/06/18 DC 08/06/18 Chloride 1,000 mls/hr IV 17:25 18:25 08/06/18 18:24 Sodium 0 ml @ 0 Q0M ONCE 08/06/18 DC Chloride mls/hr IV 17:25 08/06/18 17:26 Procedures/MDM EKG read by me: Rate/Rhythm: Regular rate and rhythm at a normal rate Intervals: Normal Impression: No evidence of ischemia or arrhythmia Patient is a 27-year-old male who presents with acute GI bleed. He was slightly hypotensive and was given 2 L of normal saline as well as Protonix. I have ordered 2 units of packed red blood cells as well. The patient will be admitted to the care of Dr. Tubbs to a medical surgical bed. I have spoken to him and he is agreeable to getting a colonoscopy this time to find out where the bleeding is coming from. Critical Care: Time: 35 minutes excluding all billable procedures. Treatments/Evaluations: Close monitoring and treatment of unstable vital signs, cardiorespiratory, and neurologic status, while maintaining tight balance of fluid, respiratory, and cardiac interventions. Departure Diagnosis: Primary Impression: GI bleed GI bleed type/associated pathology: unspecified gastrointestinal hemorrhage type Qualified Codes: K92.2 - Gastrointestinal hemorrhage, unspecified Additional Impression: Anemia Anemia type: unspecified type Qualified Codes: D64.9 - Anemia, unspecified Condition: Serious CARLA BUSCH MD Aug 06, 2018 18:34
--- NOTE | 2018-08-06 19:07 | HP ---
Date/Time of Note Date/Time of Note DATE: 08/06/18 TIME: 19:02 Assessment/Plan VTE Prophylaxis SCD applied (from Nsg): Yes Pharmacological prophylaxis: other Pharm contraindication: bleeding Lines/Catheters IV Catheter Type (from Nrsg): [place] Assessment/Plan Hospital Course Assessment and plan: 27-year-old male with a history of GI bleed who presents with signs of lower GI bleeding. # Lower GI bleeding: Patient had a history of this last month when he was here in the hospital, apparently refused colonoscopy at that time. Hemoglobin is presently stable. -Admit patient, monitor CBC and get GI consult, continue IV fluids, - hold all anticoagulants, check TSH A1c lipid panel # Homelessness: We will get social work consult to further investigate # Constipation: Monitor for now #Prior craniotomy: Again secondary to defect -Monitor for now Result Diagram: 08/06/18 1529 08/06/18 1529 Results 24hrs Laboratory Tests Test 08/06/18 15:28 08/06/18 15:29 08/06/18 17:57 Free Thyroxine 0.79 White Blood Count 11.4 #H Red Blood Count 3.50 L Hemoglobin 10.4 L Hematocrit 32.4 L Mean Corpuscular Volume 92.6 Mean Corpuscular Hemoglobin 29.7 Mean Corpuscular Hemoglobin Concent 32.1 Red Cell Distribution Width 13.3 Platelet Count 294 # Mean Platelet Volume 9.9 Immature Granulocytes % 0.600 H Neutrophils % 78.4 H Lymphocytes % 14.1 L Monocytes % 6.2 Eosinophils % 0.3 Basophils % 0.4 Nucleated Red Blood Cells % 0.0 Immature Granulocytes # 0.070 H Neutrophils # 8.9 H Lymphocytes # 1.6 Monocytes # 0.7 Eosinophils # 0.0 Basophils # 0.1 Nucleated Red Blood Cells # 0.0 Prothrombin Time 12.0 Prothrombin Time Ratio 0.9 INR International Normalized Ratio 0.88 Activated Partial Thromboplast Time 22.1 L Sodium Level 141 Potassium Level 4.3 Chloride Level 109 Carbon Dioxide Level 24 Anion Gap 8 Blood Urea Nitrogen 10 Creatinine 0.70 Est Glomerular Filtrat Rate mL/min > 60 Glucose Level 129 Calcium Level 8.2 L Total Bilirubin 0.0 L Direct Bilirubin 0.00 Indirect Bilirubin 0.0 Aspartate Amino Transf (AST/SGOT) 18 Alanine Aminotransferase (ALT/SGPT) 24 Alkaline Phosphatase 102 Troponin I < 0.012 Total Protein 6.0 L Albumin 3.2 L Globulin 2.80 Albumin/Globulin Ratio 1.14 Stool Occult Blood POSITIVE HPI/ROS Admit Date/Time Admit Date/Time Hx of Present Illness 27-year-old male past medical history of prior history of craniotomy secondary to a defect, GI bleeding, constipation, homelessness who comes in after experiencing lower GI bleeding. This occurred earlier today and patient was brought in by EMS. Patient describes the blood as dark in nature, denies any upper GI bleeding, no fevers or chills, nausea vomiting, fevers or chills, chest pain or shortness of breath. Patient was recently hospitalized here at [facility] from July 16 to July 17, 2018 for similar episode. At that time he was seen by GI team but apparently refused colonoscopy then. Presently denies being on any kind of blood thinners. When he came in today he is hemoglobin is found to be 10.4, however he was hypotensive systolic blood pressure in the 80s although heart rate was normal, and he has received 2 L of IV fluids in the ER thus far with slight improvement in his blood pressure. PMH/Family/Social Past Medical History Medications Current Medications Ondansetron HCl (Zofran Inj) 4 mg BRIDGE ORDER PRN IV NAUSEA/VOMITING; Start 08/06/18 at 17:00; Stop 08/07/18 at 16:59 Acetaminophen (Tylenol Tab) 650 mg ER BRIDGE PRN PO .MILD PAIN 1-3 OR TEMP; Start 08/06/18 at 17:00; Stop 08/07/18 at 16:59 IV Flush (NS 3 ml) 3 ml PER PROTOCOL IV ; Start 08/06/18 at 17:30 Ondansetron HCl (Zofran Inj) 4 mg Q6H PRN IV NAUSEA/VOMITING; Start 08/06/18 at 17:30 Acetaminophen (Tylenol Tab) 650 mg Q6H PRN PO .PAIN 1-3 OR TEMP; Start 08/06/18 at 17:30 Acetaminophen/ Hydrocodone Bitart ([place] (5/325)) 1 tab Q6H PRN PO .MOD PAIN 4- 6; Start 08/06/18 at 17:30 Morphine Sulfate (morphine) 2 mg Q4H PRN IV .SEVERE PAIN 7-10; Start 08/06/18 at 17:30 Docusate Sodium (Colace) 100 mg Q12H PRN PO .CONSTIPATION; Start 08/06/18 at 17:30 Magnesium Hydroxide (Milk Of Mag) 30 ml DAILY PRN PO .CONSTIPATION; Start 08/06/18 at 17:30 Pantoprazole (Protonix Iv) 40 mg BID IV ; Start 08/06/18 at 21:00 Lorazepam (Ativan) 0.5 mg Q6H PRN IV ANXIETY; Start 08/06/18 at 17:30 Sodium Chloride 1,000 ml @ 100 mls/hr Q10H IV ; Start 08/06/18 at 17:17 Albuterol/ Ipratropium (Duoneb) 3 ml Q4H RESP THERAPY PRN HHN SHORTNESS OF BREATH; Start 08/06/18 at 17:30 Hydralazine HCl (Apresoline) 10 mg Q6H PRN IV ELEVATED BLOOD PRESSURE; Start 08/06/18 at 17:30 Nitroglycerin (Nitroglycerin (Sl Tab) 0.4 Mg) 1 tab Q5M PRN SL ANGINA; Start 08/06/18 at 17:30 Coded Allergies: Penicillins (Verified Allergy, Severe, Rash, 08/06/18) Past Surgical History Past Surgical Hx: other (Craniotomy secondary to defect) Family History Significant Family History: other (Diabetes) Social History Smoking Status: Never smoker Drug Use: none Exam/Review of Systems Vital Signs Vitals Vital Signs Date Temp Pulse Resp B/P (MAP) Pulse Ox O2 O2 Flow FiO2 Time Delivery Rate 08/06/18 97.6 55 18 100 Room Air 18:30 08/06/18 2 15:35 Exam Exam Gen: lying in bed, in mild distress, asking if he can eat Head: Atraumatic Eyes: Normal Conjunctiva ENT: Normal External Ears, Nose and Mouth. Neck: Full range of motion. No meningismus. Resp: Clear to auscultation bilaterally Cardio: Regular rate and rhythm, no murmurs Abd: Soft, non tender, non distended. Normal bowel sounds Ext: No cyanosis, or edema Neur: no focal deficits MARIALUISA ANDERS Aug 06, 2018 19:07
[2018-08-06 21:14] VITALS: PULSE 62
[2018-08-06 21:46] VITALS: BP 104/52; PULSE 64; RESP 17
[2018-08-06 22:24] VITALS: Ht 157.5 cm; Wt 57.6 kg
[2018-08-07] VITALS (7 sets, daily range): BP systolic 93–102; BP diastolic 47–53; PULSE 59–75; RESP 18–19
[2018-08-07] MEDS: PANTOPRAZOLE 40 MG INJ IV SCH ×2 (01:43→08:48)
[2018-08-07] MEDS: SOD CHLORIDE 0.9% 1,000 ML IV SCH ×2 (04:18→04:20)
--- NOTE | 2018-08-07 10:07 | PN ---
Date/Time of Note Date/Time of Note DATE: 08/07/18 TIME: 10:02 Assessment/Plan VTE Prophylaxis SCD applied (from Nsg): Yes SCD contraindicated: other Pharmacological prophylaxis: NA/contraindicated Pharm contraindication: bleeding Lines/Catheters IV Catheter Type (from Nrsg): Peripheral IV Assessment/Plan Hospital Course S: Patient received 2 unit PRBC transfusion last night (apparently it was ordered by the ER on admission). Still noted with some lower GI bleeding overnight. Hemoglobin stable. Tolerating liquid diet, waiting to be seen by GI team. O: VS- see below PE: Gen: lying in bed, no acute distress Head: Atraumatic Eyes: Normal Conjunctiva ENT: Normal External Ears, Nose and Mouth. Neck: Full range of motion. No meningismus. Resp: Clear to auscultation bilaterally Cardio: Regular rate and rhythm, no murmurs Abd: Soft, non tender, non distended. Normal bowel sounds Ext: No cyanosis, or edema Neur: no focal deficits Assessment and plan: 27-year-old male with a history of GI bleed who presents with signs of lower GI bleeding. # Lower GI bleeding: Patient had a history of this last month when he was here in the hospital, apparently refused colonoscopy at that time. Hemoglobin is presently stable. -For now continue clear liquid diet, monitor CBC follow recommendations from GI consult, continue IV fluids -Continue to hold all anticoagulants # Homelessness: Follow-up recommendations from social work consult to further investigate # Constipation: Monitor for now #Prior craniotomy: Again secondary to apparent defect -Monitor for now Result Diagram: 08/07/18 0551 08/07/18 0551 Results 24hrs Laboratory Tests Test 08/06/18 15:28 08/06/18 15:29 08/06/18 17:57 08/07/18 05:51 Free Thyroxine 0.79 White Blood Count 11.4 #H 6.9 # Red Blood Count 3.50 L 3.52 L Hemoglobin 10.4 L 10.3 L Hematocrit 32.4 L 31.6 L Mean Corpuscular 92.6 89.8 Volume Mean Corpuscular 29.7 29.3 Hemoglobin Mean Corpuscular 32.1 32.6 Hemoglobin Concen t Red Cell 13.3 14.2 Distribution Width Platelet Count 294 # 241 Mean Platelet 9.9 10.5 H Volume Immature 0.600 H 0.600 H Granulocytes % Neutrophils % 78.4 H 65.9 Lymphocytes % 14.1 L 23.8 Monocytes % 6.2 8.1 Eosinophils % 0.3 1.2 Basophils % 0.4 0.4 Nucleated Red 0.0 0.0 Blood Cells % Immature 0.070 H 0.040 H Granulocytes # Neutrophils # 8.9 H 4.6 Lymphocytes # 1.6 1.7 Monocytes # 0.7 0.6 Eosinophils # 0.0 0.1 Basophils # 0.1 0.0 Nucleated Red 0.0 0.0 Blood Cells # Prothrombin Time 12.0 Prothrombin Time 0.9 Ratio INR International 0.88 Normalized Ratio Activated 22.1 L Partial Thrombopl ast Time Sodium Level 141 141 Potassium Level 4.3 4.1 Chloride Level 109 112 H Carbon Dioxide 24 25 Level Anion Gap 8 4 L Blood Urea 10 6 L Nitrogen Creatinine 0.70 0.71 Est Glomerular > 60 > 60 Filtrat Rate mL/min Glucose Level 129 84 # Calcium Level 8.2 L 7.7 L Total Bilirubin 0.0 L Direct Bilirubin 0.00 Indirect 0.0 Bilirubin Aspartate Amino 18 Transf (AST/SGOT) Alanine 24 Aminotransferase (ALT/SGPT) Alkaline 102 Phosphatase Troponin I < 0.012 Total Protein 6.0 L Albumin 3.2 L Globulin 2.80 Albumin/Globulin 1.14 Ratio Stool Occult POSITIVE Blood Phosphorus Level 2.8 Magnesium Level 2.0 Triglycerides 87 Level Cholesterol Level 104 LDL Cholesterol, 62 Calculated HDL Cholesterol 25 L Cholesterol/HDL 4.1 Ratio Thyroid 0.634 Stimulating Hormone (TSH) Test 08/07/18 07:52 Lab Scanned BLOOD TRANSFUSIO Report N Exam/Review of Systems Exam Vitals Vital Signs Date Temp Pulse Resp B/P (MAP) Pulse Ox O2 O2 Flow FiO2 Time Delivery Rate 08/07/18 61 08:00 08/07/18 97.9 19 96/49 (65) 99 07:22 08/06/18 Room Air 20:49 08/06/18 2 15:35 Results Results 24hrs Laboratory Tests Test 08/06/18 15:28 08/06/18 15:29 08/06/18 17:57 08/07/18 05:51 Free Thyroxine 0.79 White Blood Count 11.4 #H 6.9 # Red Blood Count 3.50 L 3.52 L Hemoglobin 10.4 L 10.3 L Hematocrit 32.4 L 31.6 L Mean Corpuscular 92.6 89.8 Volume Mean Corpuscular 29.7 29.3 Hemoglobin Mean Corpuscular 32.1 32.6 Hemoglobin Concen t Red Cell 13.3 14.2 Distribution Width Platelet Count 294 # 241 Mean Platelet 9.9 10.5 H Volume Immature 0.600 H 0.600 H Granulocytes % Neutrophils % 78.4 H 65.9 Lymphocytes % 14.1 L 23.8 Monocytes % 6.2 8.1 Eosinophils % 0.3 1.2 Basophils % 0.4 0.4 Nucleated Red 0.0 0.0 Blood Cells % Immature 0.070 H 0.040 H Granulocytes # Neutrophils # 8.9 H 4.6 Lymphocytes # 1.6 1.7 Monocytes # 0.7 0.6 Eosinophils # 0.0 0.1 Basophils # 0.1 0.0 Nucleated Red 0.0 0.0 Blood Cells # Prothrombin Time 12.0 Prothrombin Time 0.9 Ratio INR International 0.88 Normalized Ratio Activated 22.1 L Partial Thrombopl ast Time Sodium Level 141 141 Potassium Level 4.3 4.1 Chloride Level 109 112 H Carbon Dioxide 24 25 Level Anion Gap 8 4 L Blood Urea 10 6 L Nitrogen Creatinine 0.70 0.71 Est Glomerular > 60 > 60 Filtrat Rate mL/min Glucose Level 129 84 # Calcium Level 8.2 L 7.7 L Total Bilirubin 0.0 L Direct Bilirubin 0.00 Indirect 0.0 Bilirubin Aspartate Amino 18 Transf (AST/SGOT) Alanine 24 Aminotransferase (ALT/SGPT) Alkaline 102 Phosphatase Troponin I < 0.012 Total Protein 6.0 L Albumin 3.2 L Globulin 2.80 Albumin/Globulin 1.14 Ratio Stool Occult POSITIVE Blood Phosphorus Level 2.8 Magnesium Level 2.0 Triglycerides 87 Level Cholesterol Level 104 LDL Cholesterol, 62 Calculated HDL Cholesterol 25 L Cholesterol/HDL 4.1 Ratio Thyroid 0.634 Stimulating Hormone (TSH) Test 08/07/18 07:52 Lab Scanned BLOOD TRANSFUSIO Report N Medications Medication Current Medications Ondansetron HCl (Zofran Inj) 4 mg BRIDGE ORDER PRN IV NAUSEA/VOMITING; Start at 17:00; Stop 08/07/18 at 16:59 Acetaminophen (Tylenol Tab) 650 mg ER BRIDGE PRN PO .MILD PAIN 1-3 OR TEMP; Start 08/06/18 at 17:00; Stop 08/07/18 at 16:59 IV Flush (NS 3 ml) 3 ml PER PROTOCOL IV ; Start 08/06/18 at 17:30 Ondansetron HCl (Zofran Inj) 4 mg Q6H PRN IV NAUSEA/VOMITING; Start 08/06/18 at 17:30 Acetaminophen (Tylenol Tab) 650 mg Q6H PRN PO .PAIN 1-3 OR TEMP; Start 08/06/18 at 17:30 Acetaminophen/ Hydrocodone Bitart ([place] (5/325)) 1 tab Q6H PRN PO .MOD PAIN 4- 6; Start 08/06/18 at 17:30 Morphine Sulfate (morphine) 2 mg Q4H PRN IV .SEVERE PAIN 7-10; Start 08/06/18 at 17:30 Docusate Sodium (Colace) 100 mg Q12H PRN PO .CONSTIPATION; Start 08/06/18 at 17:30 Magnesium Hydroxide (Milk Of Mag) 30 ml DAILY PRN PO .CONSTIPATION; Start 08/06/18 at 17:30 Pantoprazole (Protonix Iv) 40 mg BID IV Last administered on 08/07/18at 08:48; Admin Dose 40 MG; Start 08/06/18 at 21:00 Lorazepam (Ativan) 0.5 mg Q6H PRN IV ANXIETY; Start 08/06/18 at 17:30 Sodium Chloride 1,000 ml @ 100 mls/hr Q10H IV Last administered on 08/07/18at 04:20; Admin Dose 100 MLS/HR; Start 08/06/18 at 17:17 Albuterol/ Ipratropium (Duoneb) 3 ml Q4H RESP THERAPY PRN HHN SHORTNESS OF BREATH; Start 08/06/18 at 17:30 Hydralazine HCl (Apresoline) 10 mg Q6H PRN IV ELEVATED BLOOD PRESSURE; Start 08/06/18 at 17:30 Nitroglycerin (Nitroglycerin (Sl Tab) 0.4 Mg) 1 tab Q5M PRN SL ANGINA; Start 08/06/18 at 17:30 MARIALUISA ANDERS Aug 07, 2018 10:07
--- NOTE | 2018-08-08 02:59 | DS ---
Date/Time of Note Date/Time of Note DATE: 08/08/18 TIME: 02:59 Discharge Summary Admission/Discharge Info Admit Date/Time Aug 06, 2018 at 16:35 Discharge Date/Time Aug 07, 2018 at 12:27 Discharge Diagnosis Pt left AMA Patient Condition: Serious Hx of Present Illness 27-year-old male past medical history of prior history of craniotomy secondary t o a defect, GI bleeding, constipation, homelessness who comes in after experiencing lower GI bleeding. This occurred earlier today and patient was brought in by EMS. Patient describes the blood as dark in nature, denies any upper GI bleeding, no fevers or chills, nausea vomiting, fevers or chills, chest pain or shortness of breath. Patient was recently hospitalized here at [facility] from July 16 to July 17, 2018 for similar episode. At that time he was seen by GI team but apparently refused colonoscopy then. Presently denies being on any kind of blood thinners. When he came in today he is hemoglobin is found to be 10.4, however he was hypotensive systolic blood pressure in the 80s although heart rate was normal, and he has received 2 L of IV fluids in the ER thus far with slight improvement in his blood pressure. Hospital Course S: Patient received 2 unit PRBC transfusion last night (apparently it was ordered by the ER on admission). Still noted with some lower GI bleeding overnight. Hemoglobin stable. Tolerating liquid diet, waiting to be seen by GI team. O: VS- see below PE: Gen: lying in bed, no acute distress Head: Atraumatic Eyes: Normal Conjunctiva ENT: Normal External Ears, Nose and Mouth. Neck: Full range of motion. No meningismus. Resp: Clear to auscultation bilaterally Cardio: Regular rate and rhythm, no murmurs Abd: Soft, non tender, non distended. Normal bowel sounds Ext: No cyanosis, or edema Neur: no focal deficits Assessment and plan: 27-year-old male with a history of GI bleed who presents with signs of lower GI bleeding. # Lower GI bleeding: Patient had a history of this last month when he was here in the hospital, apparently refused colonoscopy at that time. Hemoglobin is presently stable. -For now continue clear liquid diet, monitor CBC follow recommendations from GI consult, continue IV fluids -Continue to hold all anticoagulants # Homelessness: Follow-up recommendations from social work consult to further investigate # Constipation: Monitor for now #Prior craniotomy: Again secondary to apparent defect -Monitor for now Home Meds No Active Prescriptions or Reported Meds Primary Care Provider [facility] Time spent on discharge: < 30 minutes Pending Labs Laboratory Tests Test 08/07/18 05:51 08/07/18 07:52 White Blood Count 6.9 10^3/ul (4.8-10.8) Red Blood Count 3.52 10^6/ul (4.70-6.10) Hemoglobin 10.3 g/dl (14.0-18.0) Hematocrit 31.6 % (42.0-52.0) Mean Corpuscular Volume 89.8 fl (82.0-101.0) Mean Corpuscular Hemoglobin 29.3 pg (29.0-33.0) Mean Corpuscular 32.6 g/dl (32.0-37.0) Hemoglobin Concent Red Cell Distribution Width 14.2 % (11.5-14.5) Platelet Count 241 10^3/UL (140-415) Mean Platelet Volume 10.5 fl (7.4-10.4) Immature Granulocytes % 0.600 % (0.001-0.429) Neutrophils % 65.9 % (39.0-77.0) Lymphocytes % 23.8 % (15.0-51.0) Monocytes % 8.1 % (0.0-11.0) Eosinophils % 1.2 % (0.0-7.0) Basophils % 0.4 % (0.0-2.0) Nucleated Red Blood Cells % 0.0 /100WBC (0.0-0.0) Immature Granulocytes # 0.040 10^3/ul (0.0-0.031) Neutrophils # 4.6 10^3/ul (1.6-7.5) Lymphocytes # 1.7 10^3/ul (0.8-2.9) Monocytes # 0.6 10^3/ul (0.3-0.9) Eosinophils # 0.1 10^3/ul (0.0-0.5) Basophils # 0.0 10^3/ul (0.0-0.1) Nucleated Red Blood Cells # 0.0 10^3/ul (0.0-0.0) Sodium Level 141 mmol/L (135-144) Potassium Level 4.1 mmol/L (3.5-5.1) Chloride Level 112 mmol/L (97-110) Carbon Dioxide Level 25 mmol/L (21-31) Anion Gap 4 (5-13) Blood Urea Nitrogen 6 mg/dl (7-20) Creatinine 0.71 mg/dl (0.61-1.24) Est Glomerular Filtrat Rate mL/min > 60 mL/min (>60) Glucose Level 84 mg/dl (70-220) Hemoglobin A1c 5.1 % (0-5.9) Calcium Level 7.7 mg/dl (8.4-10.2) Phosphorus Level 2.8 mg/dl (2.5-4.9) Magnesium Level 2.0 mg/dl (1.7-2.5) Triglycerides Level 87 mg/dl (0-149) Cholesterol Level 104 mg/dl (100-200) LDL Cholesterol, Calculated 62 mg/dl HDL Cholesterol 25 mg/dl (30-63) Cholesterol/HDL Ratio 4.1 RATIO Thyroid Stimulating Hormone (TSH) 0.634 MIU/L (0.465-4.680) Lab Scanned Report BLOOD TRANSFUSION MARIALUISA ANDERS Aug 08, 2018 02:59
== END 2018-08-07 12:27 | disposition left against medical advice (07) | DRG 379 ==
LOC: E/R 15:18 → TEL 16:35 → SUATTDRO 17:16 → CANRESERV 18:06 → EDBEDREQSVC 19:04
PROVIDERS: ADMIT Hospitalist; ATTEND Hospitalist
PROC: 30233N1 Transfusion of Nonautologous Red Blood Cells into Peripheral Vein, Percutaneous Approach (ICD-10-PCS; principal; 2018-08-06)
DX: K92.2 Gastrointestinal hemorrhage, unspecified (principal); D64.9 Anemia, unspecified; Z53.21 Procedure and treatment not carried out due to patient leaving prior to being seen by health care provider; Z59.0 Homelessness
CPT/HCPCS: 36415; 36430; 80048; 80053; 80061; 82270; 83036; 83735; 84100; 84439; 84443; 84484; 85025; 85610; 85730; 86850; 86900; 86901; 86920; 93005; 96374; C9113; J7030; J7040; P9016